=== PATIENT | male | born 1960 | race Caucasian/White ===

== ENCOUNTER 2019-08-26 17:15 | IRF | payer MEDICARE, MEDICAID, SELFPAY ==
--- NOTE | 2019-08-26 17:52 | PC.NURSE ---
This patient, Aldo Rodriguez, was admitted to [facility] Room 218-01. Patient/family oriented to hospital policies and general routines including ID bracelet, bed and alarms, visiting hours, pain management, procedures, bathroom and other care routines, personal items, smoking policy, room service/diet, and visiting hours. Valuables list has been completed. Information on how to activate the Rapid Response Team has been discussed. Patient/Family are encouraged to report perceived risks to care and to ask questions if they do not understand what they are told or what they should do.
[2019-08-26 18:35] VITALS: BP 118/57; PULSE 80; RESP 20; TEMP 36.1; O2SAT 100
[2019-08-26 21:43] LABS: Glucose Point of Care 237 (65-105)
[2019-08-26] MEDS: AMOXICILLIN/CLAVULANATE K 875-125 MG TAB 1 TABLET PO (21:49)
[2019-08-26] MEDS: SIMVASTATIN 10 MG TABLET PO (21:49)
[2019-08-26] MEDS: HEPARIN SODIUM 5,000 UNITS/ML VIAL 5000 UNITS SUB-Q (21:50)
[2019-08-26 22:00] VITALS: BP 141/68; PULSE 75; RESP 18; TEMP 36.4; O2SAT 96
[2019-08-27 05:14] LABS: Basophils Percent Auto 0.2 % (0.2-1.2); Eosinophils Absolute Auto 0.1 K/mm3 (0-0.3); Hematocrit 29.1 % (42.0-52.0); Immature Granulocyte Absolute 0.31 K/mm3 (0.00-0.031); Immature Granulocyte Percent A 3.1 % (0-0.5); Lymphocytes Absolute Auto 1.91 K/mm3 (0.9-3.2); Lymphocytes Percent Auto 19.1 % (18.3-44.2); Mean Corpuscular HGB Conc 30.9 g/dl (32-36); Mean Corpuscular Hemoglobin 30.7 pg (26-34); Mean Corpuscular Volume 99.3 fl (80-100); Mean Platelet Volume 8.9 fl (7.4-10.4); Monocytes Absolute Auto 0.6 K/mm3 (0.1-0.6); Monocytes Percent Auto 5.7 % (2.6-8.5); Neutrophils Absolute Auto 7.1 K/mm3 (1.3-6.7); Neutrophils Percent Auto 70.9 % (45.5-73.1); Platelet Count Result 360 k/mm3 (150-375); Red Blood Count 2.93 M/mm3 (4.6-6.20); Red Cell Distribution Width 13.1 % (11.5-14.5)
[2019-08-27 05:25] LABS: Blood Urea Nitrogen 11 mg/dL (9-20); Calcium 7.3 mg/dL (8.4-10.2); Carbon Dioxide 30 mmol/L (22-30); Chloride 103 mmol/L (98-107); Estimated Glomerular Filt Rate > 60; Glucose 248 mg/dL (75-110); Potassium 4.5 mmol/L (3.4-5.0); Sodium 135 mmol/L (137-145)
[2019-08-27] MEDS: HEPARIN SODIUM 5,000 UNITS/ML VIAL 5000 UNITS SUB-Q ×3 (05:32→20:41)
[2019-08-27 06:00] VITALS: BP 125/36; PULSE 69; RESP 18; TEMP 37; O2SAT 97
[2019-08-27 06:33] LABS: Glucose Point of Care 223 (65-105)
[2019-08-27] MEDS: INSULIN HUMAN NPH (*BKC) 100 UNITS/ML 30 UNITS SUB-Q (08:22)
[2019-08-27] MEDS: metFORMIN HCL 500 MG TABLET 1000 MG PO ×2 (08:23→17:04)
[2019-08-27] MEDS: ASPIRIN 81 MG ENTERIC TABLET PO (08:23)
[2019-08-27] MEDS: AMOXICILLIN/CLAVULANATE K 875-125 MG TAB 1 TABLET PO ×2 (08:23→20:41)
[2019-08-27] MEDS: lisinopriL 5 MG TABLET PO (08:23)
[2019-08-27] MEDS: GABAPENTIN 400 MG CAPSULE 800 MG PO ×3 (08:23→17:03)
[2019-08-27 09:52] LABS: Glucose Point of Care 217 (65-105)
--- NOTE | 2019-08-27 10:00 | WPDREHABHP ---
H&P: HPI History of Present Illness Chief complaint: r bka Narrative: Aldo Rodriguez is a 58 year old male HISTORY OF PRESENT ILLNESS: The patient's primary rehab impairment category is Amputation /lower extremity The etiologic diagnosis is right foot osteomyelitis with gangrene / status post right [id number] amputation I saw this patient [id number] on August 27, 2019 at 10:00 a.m. The patient is a 58-year-old right-handed white male with a past medical history of diabetes mellitus, diabetic foot ulcers with osteomyelitis, chronic kidney disease and peripheral vascular disease along with peripheral neuropathy who presented to the emergency department at [facility] on August 18, 2019 complaining of generalized weakness. He reported dropping a 4 pound can of beans on his right 4th toe approximately 10 days ago. He also complained of excessive thirst and urination. Examination revealed diabetic ketoacidosis with poorly-controlled diabetes mellitus type 1, right foot osteomyelitis, gangrene, acute renal failure, sepsis and soft tissue infection. He was hypotensive and dehydrated. He was given aggressive IV fluids. Lab work revealed pseudo hyperkalemia with lactic acidosis and acute renal failure. He was started on vancomycin and Zosyn empirically while awaiting cultures. He was started on an insulin drip and the transitions to subcutaneous insulin when he was at the level of the anion gap normalized. I vascular surgery was consulted and deemed the limb was not salvageable. He underwent a right wxoxa-bop-jeup amputation and left 2nd toe amputation with debridement of the left foot on August 20, [address] Tavares. He is nonweightbearing to the right lower extremity and he will touch weight-bearing on the left lower extremity. The patient will receive daily dressing changes. Postoperatively he has experienced acute pain, acute blood-loss anemia, hyperglycemia and hyponatremia. His insulin regimen has been monitored and managed accordingly. Pain is controlled with oral medications. Acute blood-loss anemia is stable with a hemoglobin of 10 point want at the referring hospital. Electrolyte balance are monitored and replaced as necessary. DVT prophylaxis with subcutaneous heparin. The patient has not traveled outside the [place] or had contact with someone who is ill that has traveled outside the [place] in the past 21 days. Patient also has not traveled to an area of the [place] that is experiencing known transmission of the Coronavirus and has not had close personal contact with anyone that has. The patient does not have a fever. The patient does not have any upper or aspirin lower respiratory illness symptoms Therapy was initiated at the acute care facility and the patient transferred to us from [facility] on August 26, 2019 on FALLS OR SURGERIES: The patient has had major surgeries in the 100 days prior to admission. They had no falls in the past year. They had no falls with injury in the past year. PAST MEDICAL HISTORY: cataracts, cellulitis left foot 2015, MRSA right leg 2005, current ulcer to the right foot hyperlipidemia hypertension peripheral neuropathy bilateral hands and feet diabetes mellitus type 1 since age 12 and morbid obesity, chronic kidney disease most likely related to diabetes mellitus PAST SURGICAL HISTORY: umbilical hernia repair x3 in the 90 speech 2 2 post amputation, right armpit tumor removal in his teens. Right 1st and 2nd to amputation prior to having had right BKA SOCIAL HISTORY: the patient lives with his brother in a 1 level home 5th 4 steps to enter. His brother is currently stooling ramp. Patient was completely independent prior and was working. 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 He is very motivated to participate in therapy and return to his prior level of independent functioning. He reported no falls the previous 6 months
[2019-08-27 12:24] LABS: Glucose Point of Care 156 (65-105)
[2019-08-27 14:00] VITALS: BP 100/63; PULSE 82; RESP 18; TEMP 36.7; O2SAT 99
--- NOTE | 2019-08-27 15:35 | RPD ---
INDIVIDUALIZED PLAN OF CARE FOR Aldo Rodriguez Brief Synthesis of Pre-Admission Screen, Post-Admission Evaluation and Therapy Evaluations: The patient presents to rehab with . Comorbidities include . Deficits include: Resident Care Manager/Case Management for: Discharge Planning and Patient/Family Counseling Physical Therapy: 5 days per week for 90 minutes. Treatments may include: Therapeutic Exercise, Gait Training, Neuromuscular Re-education, Transfer Training, Community Reintegration, Bed Mobility, Patient/Family Education, Wheelchair Mobility Group Therapy/Concurrent Therapy Rationales: -Improve attention span during functional activities in a distracted environment. -Enhance problem solving and/or adequate judgment skills during functional activities in a distracted environment. -Promote increased safety awareness in a distracted environment to reduce fall risk with functional tasks, transfers, and ambulation to allow a more safe, self-sufficient return to the home environment. -Improve dynamic balance skills to promote safety and independence with functional activities in a distracted environment for maximum gain. Occupational Therapy: 5 days per week for 90 minutes. Treatments may include: Therapeutic Exercise, Therapeutic Activity, Cognitive Training, Self-Care Transfer Training, Community Reintegration, Home Management, Patient/Family Education, Wheelchair Mobility Training, Energy Conservation Training Group Therapy/Concurrent Therapy Rationales: -Allow therapist to observe and teach generalization and carry-over of skills learned in individual therapy. -Enhance problem solving and sequencing skills during therapeutic activities in a distracted environment. -Promote increased safety awareness in a realistic setting to reduce fall risk with functional tasks due to visual and verbal distractions. -Increase functional level with ADLs, ADL transfers and use of adaptive equipment through therapeutic activities with others while promoting safety to allow a more safe, self-sufficient return home. Speech Therapy: 5 days per week for 30 minutes. Treatments may include: Dysphasia Therapy, Speech/Language/Communication Therapy, Cognitive Training, Patient/Family Education Group Therapy/Concurrent Therapy - Rationale: -Allow therapist to observe and teach generalization and carry-over of skills learned in individual therapy. -Improve comprehension skills with complex or abstract ideas through discussion in a realistic setting. -Enhance problem solving skills with complex issues during activities in a distracted environment. -Promote increased memory skills and concentration in a distracted environment for a safe transition home. -Improve attention and focus with language/communication skills in a realistic and supportive therapeutic setting. -Allow for practice of expression of basic needs and ideas through functional activities with others. Medical Prognosis: Good Anticipated Length of Stay: 12 days Rehab Goals: Eating Goal: 06-Independent Oral Hygiene Goal: 06-Independent Toileting Hygiene Goal: 06-Independent Shower/Bathe Self Goal: 06-Independent Upper Body Dressing Goal: 06-Independent Lower Body Dressing Goal: 06-Independent Putting On/Taking Off Footwear Goal: 06-Independent Rolling Left and Right Goal: 06-Independent Sit to Lying Goal: 06-Independent Lying to Sitting on Side of Bed Goal: 06-Independent Sit to Stand Goal: 06-Independent Chair/Ryt-uh-Onwgf Transfer Goal: 06-Independent Toilet Transfer Goal: 06-Independent Car Transfer Goal: Walk 10' Goal: Walk 50' with Two Turns Goal: Walk 150' Goal: Walk 10' on Uneven Surface Goal: 1 Step (Curb) Goal: 4 Steps Goal: 12 Steps Goal Score: Picking Up Object Goal: 04-Supervision or Touching Assistance Wheel 50' with Two Turns Score: Wheel 150' Goal: Anticipated discharge destination: Home
[2019-08-27 17:20] LABS: Glucose Point of Care 121 (65-105)
[2019-08-27 20:00] VITALS: BP 137/60; PULSE 84; RESP 20; TEMP 36.6; O2SAT 100
[2019-08-27] MEDS: SIMVASTATIN 10 MG TABLET PO (20:41)
[2019-08-27 21:46] LABS: Glucose Point of Care 187 (65-105)
[2019-08-28 03:55] VITALS: BMI 38.0
[2019-08-28 05:49] VITALS: BP 128/50; PULSE 74; RESP 20; TEMP 36.8; O2SAT 98
[2019-08-28] MEDS: HEPARIN SODIUM 5,000 UNITS/ML VIAL 5000 UNITS SUB-Q ×3 (06:19→20:40)
[2019-08-28 07:05] LABS: Glucose Point of Care 174 (65-105)
[2019-08-28] MEDS: INSULIN HUMAN NPH (*BKC) 100 UNITS/ML 30 UNITS SUB-Q ×2 (08:26→17:13)
[2019-08-28] MEDS: AMOXICILLIN/CLAVULANATE K 875-125 MG TAB 1 TABLET PO ×2 (08:28→20:40)
[2019-08-28] MEDS: ASPIRIN 81 MG ENTERIC TABLET PO (08:28)
[2019-08-28] MEDS: metFORMIN HCL 500 MG TABLET 1000 MG PO ×2 (08:28→17:12)
[2019-08-28] MEDS: GABAPENTIN 400 MG CAPSULE 800 MG PO ×3 (08:28→17:12)
[2019-08-28] MEDS: lisinopriL 5 MG TABLET PO (08:31)
[2019-08-28 10:34] VITALS: BMI 38.0
--- NOTE | 2019-08-28 11:21 | WPDNEURORHBP ---
Subjective Date/time seen: 08/28/19 11:21 Interval history: this 58-year-old is abated after having had right BKA he is a diabetic and multiple medical issues he wants his gabapentin every 8 hours otherwise is stable pain control is better diabetic control seems to be better he does not have any new symptoms particularly denies any headache nausea vomiting chest pain shortness of breath fever chills or sore throat Review of Systems Review of Systems: All systems reviewed & are unremarkable except as noted in HPI and below Functional Status Ambulation Ability Ability to Ambulate 10 Feet: Moderate Assistance X 1 Ambulation Assistive Devices: Walker, Standard Transfers Ability Ability to Transfer In/Out of Chair: Minimum Assistance X 1 Exam Const: General: comfortable and no acute distress HENMT: General nose exam: Normal nares present Mouth: Yes moist mucous membranes Eyes: General: appearance normal, both eyes and all related structures Neck: Neck: supple and no JVD Resp: Effort & Inspection: normal respiratory effort Auscultation: clear to auscultation bilaterally Cardio: Rate: regular rate Rhythm: regular rhythm GI: GI Palp: Yes Soft to palpation Auscultation: normal bowel sounds : Male General Exam: Yes normal external exam Skin: General skin exam: normal color and no rashes or lesions noted Neuro: Other: patient is awake and alert will oriented times place and person speech and language functions are normal cranial nerve examination is normal apart from the evidence of diabetic retinopathy he does have significant evidence of the diabetic peripheral neuropathy with absent reflexes and sensory deficit needing assistance in all activities of daily living Extrem: Other: evidence of a peripheral neuropathy along with the right BKA the stump is clean Psych: Mental Status: mental status grossly normal Objective Data Vital Signs Vital Signs: Vital Signs - 24 hr 08/28/19 14:00 08/28/19 22:00 08/29/19 06:00 Temperature 36.4 C L 36.2 C L 36.3 C L Pulse Rate 78 70 64 Respiratory Rate 18 18 18 Blood Pressure 117/61 130/68 129/65 Pulse Oximetry 98 100 99 Intake/Output Intake/Output: Intake & Output 08/26/19 08/27/19 08/28/19 08/29/19 23:59 23:59 23:59 23:59 Intake Total 140 950 7357 480 Balance 048 057 0228 480 Meds/Results Medications: Active Medications Generic Name Dose Route Start Last Admin Trade Name Freq PRN Reason Stop Dose Admin Hydrocodone Bitart/Acetaminophen 2 tab 08/28/19 13:00 08/29/19 08:34 Max 5-325 Mg PO 2 tab Q4HR KHRIS Administration Amoxicillin/Clavulanate Potassium 1 tablet 08/26/19 21:00 08/29/19 08:31 Augmentin 875-125 Mg Tab PO 1 tablet Q12HR KHRIS Administration Aspirin 81 mg 08/27/19 09:00 08/29/19 08:31 Aspirin Ec PO 81 mg DAILY KHRIS Administration Gabapentin 800 mg 08/27/19 09:00 08/29/19 08:32 Neurontin PO 800 mg TID KHRIS Administration Heparin Sodium (Porcine) 5,000 units 08/26/19 22:00 08/29/19 05:25 Heparin Sodium SUB-Q 5,000 units Q8HR KHRIS Administration Insulin Human NPH 30 units 08/28/19 08:00 08/29/19 08:31 SUB-Q 30 units 0800,1700 KHRIS Administration Lisinopril 5 mg 08/27/19 09:00 08/29/19 08:32 Prinivil PO 5 mg DAILY KHRIS Administration Metformin HCl 1,000 mg 08/27/19 08:00 08/29/19 08:31 Glucophage PO 1,000 mg BIDWM KHRIS Administration Simvastatin 10 mg 08/26/19 21:00 08/28/19 20:40 Zocor PO 10 mg HS KHRIS Administration Labs Labs: Laboratory Results - last 24 hr 08/28/19 08/28/19 08/28/19 12:04 16:40 20:52 POC Capillary Glucose 222 H 161 H 110 08/29/19 06:53 POC Capillary Glucose 114 H Progress Note: A&P Assessment and Plan (1) Chronic kidney disease: Code(s): N18.9 - Chronic kidney disease, unspecified Status: Acute (2) Hypertension: Code(s): I10 - Essential (primary) hypertension Status
[2019-08-28 12:09] LABS: Glucose Point of Care 222 (65-105)
[2019-08-28 14:00] VITALS: BP 117/61; PULSE 78; RESP 18; TEMP 36.4; O2SAT 98
--- NOTE | 2019-08-28 15:41 | RPD ---
INDIVIDUALIZED PLAN OF CARE FOR Aldo Rodriguez Brief Synthesis of Pre-Admission Screen, Post-Admission Evaluation and Therapy Evaluations: The patient presents to rehab with right foot osetomyelitis with gangrene. Comorbidities include right foot soft tissue infection, status post right below knee amputation, peripheral neuropathy, acute pain, mild respiratory insufficiency, hypotension secondary to sepsis, sepsis, dehydration, acute on chronic renal failure, diabetic ketoacidosis, edema, erythema. The patient requires physician services for medical oversight, management of post-op complications in the setting of present comorbidities, management of diabetes mellitus with diabetic ketoacidosis this admission, and pain management. Post-op complications have included hyponatremia, hyperglycemia, acute postoperative pain, and acute blood loss anemia. The patient requires nursing services for anticoagulation therapy, diabetes training, DVT prophylactics, infection protection, medication management and education, pressure relief, and wound care. Deficits include:ADLs, Balance, Endurance, Family Training/Education, Mobility, Pain Management, ROM, Safety, Strength, Transfers Educational Psychologist/Case Management for: Discharge Planning and Patient/Family Counseling Physical Therapy: 5 days per week for 90 minutes. Treatments may include: Therapeutic Exercise, Gait Training, Neuromuscular Re-education, Transfer Training, Community Reintegration, Bed Mobility, Patient/Family Education, Wheelchair Mobility Group Therapy/Concurrent Therapy Rationales: -Improve attention span during functional activities in a distracted environment. -Enhance problem solving and/or adequate judgment skills during functional activities in a distracted environment. -Promote increased safety awareness in a distracted environment to reduce fall risk with functional tasks, transfers, and ambulation to allow a more safe, self-sufficient return to the home environment. -Improve dynamic balance skills to promote safety and independence with functional activities in a distracted environment for maximum gain. Occupational Therapy: 5 days per week for 90 minutes. Treatments may include: Therapeutic Exercise, Therapeutic Activity, Cognitive Training, Self-Care Transfer Training, Community Reintegration, Home Management, Patient/Family Education, Wheelchair Mobility Training, Energy Conservation Training Group Therapy/Concurrent Therapy Rationales: -Allow therapist to observe and teach generalization and carry-over of skills learned in individual therapy. -Enhance problem solving and sequencing skills during therapeutic activities in a distracted environment. -Promote increased safety awareness in a realistic setting to reduce fall risk with functional tasks due to visual and verbal distractions. -Increase functional level with ADLs, ADL transfers and use of adaptive equipment through therapeutic activities with others while promoting safety to allow a more safe, self-sufficient return home. Medical Prognosis: Good Anticipated Length of Stay: 12 days Rehab Goals: Eating Goal: 06-Independent Oral Hygiene Goal: 06-Independent Toileting Hygiene Goal: 06-Independent Shower/Bathe Self Goal: 06-Independent Upper Body Dressing Goal: 06-Independent Lower Body Dressing Goal: 06-Independent Putting On/Taking Off Footwear Goal: 06-Independent Rolling Left and Right Goal: 06-Independent Sit to Lying Goal: 06-Independent Lying to Sitting on Side of Bed Goal: 06-Independent Sit to Stand Goal: 06-Independent Chair/Tvq-qt-Pernc Transfer Goal: 06-Independent Toilet Transfer Goal: 06-Independent Car Transfer Goal: 06-Independent Walk 10' Goal: 06-Independent Walk 50' with Two Turns Goal: 02-Substantial/Maximal Assistance Walk 150' Goal: 09-Not Applicable Walk 10' on Uneven Surface Goal: 06-Independent 1 Step (Curb) Goal: 02-Substantial/Maximal Assistance 4 Steps Goal: 02-Substantial/Maximal Assistance 12 Step
[2019-08-28 16:45] LABS: Glucose Point of Care 161 (65-105)
[2019-08-28] MEDS: SIMVASTATIN 10 MG TABLET PO (20:40)
[2019-08-28 21:00] LABS: Glucose Point of Care 110 (65-105)
[2019-08-28 22:00] VITALS: BP 130/68; PULSE 70; RESP 18; TEMP 36.2; O2SAT 100
[2019-08-29] MEDS: HEPARIN SODIUM 5,000 UNITS/ML VIAL 5000 UNITS SUB-Q ×3 (05:25→21:16)
[2019-08-29 06:00] VITALS: BP 129/65; PULSE 64; RESP 18; TEMP 36.3; O2SAT 99
[2019-08-29 06:58] LABS: Glucose Point of Care 114 (65-105)
[2019-08-29] MEDS: INSULIN HUMAN NPH (*BKC) 100 UNITS/ML 30 UNITS SUB-Q ×2 (08:31→17:25)
[2019-08-29] MEDS: ASPIRIN 81 MG ENTERIC TABLET PO (08:31)
[2019-08-29] MEDS: AMOXICILLIN/CLAVULANATE K 875-125 MG TAB 1 TABLET PO ×2 (08:31→21:14)
[2019-08-29] MEDS: metFORMIN HCL 500 MG TABLET 1000 MG PO ×2 (08:31→17:24)
[2019-08-29] MEDS: GABAPENTIN 400 MG CAPSULE 800 MG PO ×3 (08:32→21:15)
[2019-08-29] MEDS: lisinopriL 5 MG TABLET PO (08:32)
[2019-08-29 12:08] LABS: Glucose Point of Care 84 (65-105)
--- NOTE | 2019-08-29 13:35 | WPDNEURORHBP ---
Subjective Date/time seen: 08/29/19 13:35 Interval history: this 58-year-old diabetic type 1 is here after having had right BKA created is pain is fairly decently controlled he denies any headache nausea vomiting chest pain shortness of breath fever chills or sore throat Review of Systems Review of Systems: All systems reviewed & are unremarkable except as noted in HPI and below Functional Status Ambulation Ability Ability to Ambulate 10 Feet: Moderate Assistance X 1 Ambulation Assistive Devices: Walker, Standard Transfers Ability Ability to Transfer In/Out of Chair: Minimum Assistance X 1 Exam Const: General: comfortable and no acute distress HENMT: General nose exam: Normal nares present Mouth: Yes moist mucous membranes Eyes: General: appearance normal, both eyes and all related structures Neck: Neck: supple and no JVD Resp: Effort & Inspection: normal respiratory effort Auscultation: clear to auscultation bilaterally Cardio: Rate: regular rate Rhythm: regular rhythm GI: GI Palp: Yes Soft to palpation Auscultation: normal bowel sounds : Male General Exam: Yes normal external exam Skin: General skin exam: normal color and no rashes or lesions noted Neuro: Other: patient's mental status is normal cranial exam shows normal he has generalized weakness and significant evidence of peripheral neuropathy lower extremities more so than the upper extremities and of course right puczq-isv-[id number] amputation Extrem: Other: right [id number]-[id number] amputation looks clean Psych: Mental Status: mental status grossly normal Objective Data Vital Signs Vital Signs: Vital Signs - 24 hr 08/28/19 14:00 08/28/19 22:00 08/29/19 06:00 Temperature 36.4 C L 36.2 C L 36.3 C L Pulse Rate 78 70 64 Respiratory Rate 18 18 18 Blood Pressure 117/61 130/68 129/65 Pulse Oximetry 98 100 99 Intake/Output Intake/Output: Intake & Output 08/26/19 08/27/19 08/28/19 08/29/19 23:59 23:59 23:59 23:59 Intake Total 747 052 5897 480 Balance 282 254 5021 480 Meds/Results Medications: Active Medications Generic Name Dose Route Start Last Admin Trade Name Freq PRN Reason Stop Dose Admin Hydrocodone Bitart/Acetaminophen 2 tab 08/28/19 13:00 08/29/19 13:03 [place] 5-325 Mg PO 2 tab Q4HR KHRIS Administration Amoxicillin/Clavulanate Potassium 1 tablet 08/26/19 21:00 08/29/19 08:31 Augmentin 875-125 Mg Tab PO 1 tablet Q12HR KHRIS Administration Aspirin 81 mg 08/27/19 09:00 08/29/19 08:31 Aspirin Ec PO 81 mg DAILY KHRIS Administration Gabapentin 800 mg 08/29/19 14:00 08/29/19 13:03 Neurontin PO 800 mg Q8HR KHRIS Administration Heparin Sodium (Porcine) 5,000 units 08/26/19 22:00 08/29/19 13:03 Heparin Sodium SUB-Q 5,000 units Q8HR KHRIS Administration Insulin Human NPH 30 units 08/28/19 08:00 08/29/19 08:31 SUB-Q 30 units 0800,1700 KHRIS Administration Lisinopril 5 mg 08/27/19 09:00 08/29/19 08:32 Prinivil PO 5 mg DAILY KHRIS Administration Metformin HCl 1,000 mg 08/27/19 08:00 08/29/19 08:31 Glucophage PO 1,000 mg BIDWM KHRIS Administration Simvastatin 10 mg 08/26/19 21:00 08/28/19 20:40 Zocor PO 10 mg HS KHRIS Administration Labs Labs: Laboratory Results - last 24 hr 08/28/19 08/28/19 08/29/19 16:40 20:52 06:53 POC Capillary Glucose 161 H 110 114 H 08/29/19 11:49 POC Capillary Glucose 84 Progress Note: A&P Assessment and Plan (1) Chronic kidney disease: Code(s): N18.9 - Chronic kidney disease, unspecified Status: Acute (2) Hypertension: Code(s): I10 - Essential (primary) hypertension Status: Acute (3) Uncontrolled type 1 diabetes mellitus with peripheral autonomic neuropathy: Code(s): E10.43 - Type 1 diabetes mellitus with diabetic autonomic (poly)neuropathy; E10.65 - Type 1 diabetes mellitus with hyperglycemia Status: Acute (4) Amputation of second toe, left, traumatic:
[2019-08-29 14:00] VITALS: BP 132/68; PULSE 81; RESP 18; TEMP 36.2; O2SAT 98
[2019-08-29 17:19] LABS: Glucose Point of Care 87 (65-105)
[2019-08-29] MEDS: SIMVASTATIN 10 MG TABLET PO (21:15)
[2019-08-29 21:45] LABS: Glucose Point of Care 129 (65-105)
[2019-08-29 21:48] VITALS: BP 119/63; PULSE 72; RESP 16; TEMP 36.1; O2SAT 100
[2019-08-30] MEDS: HEPARIN SODIUM 5,000 UNITS/ML VIAL 5000 UNITS SUB-Q ×3 (05:30→20:38)
[2019-08-30] MEDS: GABAPENTIN 400 MG CAPSULE 800 MG PO ×3 (05:30→21:50)
[2019-08-30 06:00] VITALS: BP 143/82; PULSE 77; RESP 18; TEMP 36; O2SAT 98
[2019-08-30 06:49] LABS: Glucose Point of Care 95 (65-105)
[2019-08-30 08:00] VITALS: PULSE 77; RESP 18; O2SAT 98
[2019-08-30] MEDS: lisinopriL 5 MG TABLET PO (08:25)
[2019-08-30] MEDS: metFORMIN HCL 500 MG TABLET 1000 MG PO ×2 (08:25→17:03)
[2019-08-30] MEDS: AMOXICILLIN/CLAVULANATE K 875-125 MG TAB 1 TABLET PO ×2 (08:25→20:36)
[2019-08-30] MEDS: ASPIRIN 81 MG ENTERIC TABLET PO (08:25)
[2019-08-30 11:06] LABS: Glucose Point of Care 191 (65-105)
[2019-08-30 13:58] VITALS: BP 125/56; PULSE 79; RESP 18; TEMP 36.1; O2SAT 99
[2019-08-30 16:56] LABS: Glucose Point of Care 155 (65-105)
[2019-08-30] MEDS: INSULIN HUMAN NPH (*BKC) 100 UNITS/ML 30 UNITS SUB-Q (17:03)
[2019-08-30 20:31] VITALS: BP 134/68; PULSE 76; RESP 16; TEMP 36.5; O2SAT 100
[2019-08-30] MEDS: SIMVASTATIN 10 MG TABLET PO (20:35)
[2019-08-30 21:04] LABS: Glucose Point of Care 157 (65-105)
[2019-08-31 04:30] VITALS: BP 149/89; PULSE 69; RESP 16; TEMP 36.6; O2SAT 99
[2019-08-31] MEDS: HEPARIN SODIUM 5,000 UNITS/ML VIAL 5000 UNITS SUB-Q ×3 (05:25→22:11)
[2019-08-31] MEDS: GABAPENTIN 400 MG CAPSULE 800 MG PO ×3 (05:25→22:11)
[2019-08-31 06:55] LABS: Glucose Point of Care 75 (65-105)
[2019-08-31 08:00] VITALS: PULSE 69; RESP 16; O2SAT 99
[2019-08-31] MEDS: lisinopriL 5 MG TABLET PO (08:32)
[2019-08-31] MEDS: AMOXICILLIN/CLAVULANATE K 875-125 MG TAB 1 TABLET PO ×2 (08:32→20:41)
[2019-08-31] MEDS: ASPIRIN 81 MG ENTERIC TABLET PO (08:32)
[2019-08-31] MEDS: metFORMIN HCL 500 MG TABLET 1000 MG PO ×2 (08:32→17:06)
--- NOTE | 2019-08-31 09:56 | WPDNEURORHBP ---
Subjective Date/time seen: MATI with pain which is improving and going home today08/31/19 09:56 Functional Status Ambulation Ability Ability to Ambulate 10 Feet: Moderate Assistance X 1 Ambulation Assistive Devices: Walker, Standard and Walker, Wheeled Transfers Ability Ability to Transfer In/Out of Chair: Minimum Assistance X 1 Exam Const: General: cooperative, comfortable and no acute distress Orientation/consciousness: patient oriented x3 Limitations: no limitations Eyes: General: appearance normal, both eyes and all related structures Neck: Neck: full ROM and no lymphadenopathy Resp: Effort & Inspection: normal respiratory effort and able to speak in complete sentences Auscultation: clear to auscultation bilaterally Cardio: Rate: regular rate Rhythm: regular rhythm GI: Auscultation: normal bowel sounds Skin: General skin exam: no rashes or lesions noted Neuro: General: patient oriented x3 and moves all extremities Cranial nerves: Yes CN's II-XII intact bilaterally, Yes Equal, round and reactive pupils present, Yes Bilaterally intact EOM present, Yes Nystagmus not present, Yes Normal facial strength present, Yes Midline tongue present, Yes Symmetric palate elevation present and Yes Ability to bilaterally rotate head present Cognition (Neuro): normal cognition Speech: normal speech Gait exam (Neuro): Wide-based gait present Motor exam (neuro): 5/5 motor strength present throughout (decreased in lower extremities. particularly LLE), Motor fasciculations not present and Normal motor muscle tone present throughout Psych: Appearance: grossly normal Mental Status: mental status grossly normal Affect: normal affect Attitude: cooperative Thought process: Normal thought process present Thought content: Yes Normal thought content present Insight: Good insight present (Psych) Objective Data Vital Signs Vital Signs: Vital Signs - 24 hr 08/30/19 13:58 08/30/19 20:31 08/31/19 04:30 Temperature 36.1 C L 36.5 C 36.6 C Pulse Rate 79 76 69 Respiratory Rate 18 16 16 Blood Pressure 125/56 L 134/68 149/89 H Pulse Oximetry 99 100 99 Intake/Output Intake/Output: Intake & Output 08/28/19 08/29/19 08/30/19 08/31/19 23:59 23:59 23:59 23:59 Intake Total 1080 1440 840 Balance 1080 1440 840 Meds/Results Medications: Active Medications Generic Name Dose Route Start Last Admin Trade Name Freq PRN Reason Stop Dose Admin Hydrocodone Bitart/Acetaminophen 2 tab 08/28/19 13:00 08/31/19 08:33 [place] 5-325 Mg PO 2 tab Q4HR KHRIS Administration Amoxicillin/Clavulanate Potassium 1 tablet 08/26/19 21:00 08/31/19 08:32 Augmentin 875-125 Mg Tab PO 1 tablet Q12HR KHRIS Administration Aspirin 81 mg 08/27/19 09:00 08/31/19 08:32 Aspirin Ec PO 81 mg DAILY KHRIS Administration Gabapentin 800 mg 08/29/19 14:00 08/31/19 05:25 Neurontin PO 800 mg Q8HR KHRIS Administration Heparin Sodium (Porcine) 5,000 units 08/26/19 22:00 08/31/19 05:25 Heparin Sodium SUB-Q 5,000 units Q8HR KHRIS Administration Insulin Human NPH 30 units 08/28/19 08:00 08/31/19 08:35 SUB-Q Not Given 0800,1700 KHRIS Lisinopril 5 mg 08/27/19 09:00 08/31/19 08:32 Prinivil PO 5 mg DAILY KHRIS Administration Metformin HCl 1,000 mg 08/27/19 08:00 08/31/19 08:32 Glucophage PO 1,000 mg BIDWM KHRIS Administration Simvastatin 10 mg 08/26/19 21:00 08/30/19 20:35 Zocor PO 10 mg HS KHRIS Administration Labs Labs: Laboratory Results - last 24 hr 08/30/19 08/30/19 08/30/19 11:02 16:52 20:43 POC Capillary Glucose 191 H 155 H 157 H 08/31/19 06:51 POC Capillary Glucose 75 Progress Note: A&P Additional Plan stable advise knee extension exersizes at home while sitting in chair
[2019-08-31 11:57] LABS: Glucose Point of Care 126 (65-105)
[2019-08-31 14:00] VITALS: BP 100/52; PULSE 72; RESP 18; TEMP 37; O2SAT 97
[2019-08-31 16:57] LABS: Glucose Point of Care 143 (65-105)
[2019-08-31] MEDS: INSULIN HUMAN NPH (*BKC) 100 UNITS/ML 30 UNITS SUB-Q (17:09)
[2019-08-31 20:33] LABS: Glucose Point of Care 152 (65-105)
[2019-08-31] MEDS: SIMVASTATIN 10 MG TABLET PO (20:41)
[2019-08-31 22:00] VITALS: BP 146/51; PULSE 69; RESP 20; TEMP 36.3; O2SAT 100
[2019-09-01] MEDS: HEPARIN SODIUM 5,000 UNITS/ML VIAL 5000 UNITS SUB-Q ×3 (05:55→20:47)
[2019-09-01] MEDS: GABAPENTIN 400 MG CAPSULE 800 MG PO ×3 (05:56→22:04)
[2019-09-01 06:00] VITALS: BP 191/71; PULSE 75; RESP 20; TEMP 36.3; O2SAT 98
[2019-09-01 07:02] LABS: Glucose Point of Care 104 (65-105)
[2019-09-01] MEDS: metFORMIN HCL 500 MG TABLET 1000 MG PO ×2 (09:01→17:43)
[2019-09-01] MEDS: lisinopriL 5 MG TABLET PO (09:02)
[2019-09-01] MEDS: AMOXICILLIN/CLAVULANATE K 875-125 MG TAB 1 TABLET PO ×2 (09:02→20:45)
[2019-09-01] MEDS: ASPIRIN 81 MG ENTERIC TABLET PO (09:02)
[2019-09-01] MEDS: INSULIN HUMAN NPH (*BKC) 100 UNITS/ML 30 UNITS SUB-Q (09:08)
--- NOTE | 2019-09-01 12:59 | PCNFU ---
Nutrition Follow-Up Complete: Increased protein needs related to increased demands for healing as evidenced by recent BKA and toe amputation. Goal: Patient to consume 75% of meals or greater. Patient has met goal. No new goal. Pt current nutrition is Heart Healthy. Nutrition recommendation: Agree Last recorded weight is 110 kg. Bowel Motility:+BM reported 08/30. Labs Reviewed:no new labs to report. Meds Noted:NPH, Glucophage, Augmentin Additional Notes: Spoke with patient today due to COVID 19 precautions. Patient states to no diet concerns. Oral intake 100% of meals. Agree with diet orders. Monitoring: Follow up every 5 days.
[2019-09-01 14:00] VITALS: BP 140/68; PULSE 87; RESP 20; TEMP 36.5; O2SAT 98
[2019-09-01 18:32] LABS: Glucose Point of Care 114 (65-105)
[2019-09-01] MEDS: SIMVASTATIN 10 MG TABLET PO (20:45)
[2019-09-01 20:59] LABS: Glucose Point of Care 121 (65-105)
[2019-09-01 22:00] VITALS: BP 149/75; PULSE 76; RESP 17; TEMP 36.3; O2SAT 99
[2019-09-02 04:42] LABS: Glucose Point of Care 106 (65-105)
[2019-09-02 06:00] VITALS: BP 143/71; PULSE 69; RESP 17; TEMP 36.1; O2SAT 100
[2019-09-02] MEDS: HEPARIN SODIUM 5,000 UNITS/ML VIAL 5000 UNITS SUB-Q ×3 (06:33→21:00)
[2019-09-02] MEDS: GABAPENTIN 400 MG CAPSULE 800 MG PO ×3 (06:33→21:00)
[2019-09-02 07:00] LABS: Glucose Point of Care 117 (65-105)
[2019-09-02 08:00] VITALS: PULSE 69; RESP 17; O2SAT 100
[2019-09-02] MEDS: metFORMIN HCL 500 MG TABLET 1000 MG PO ×2 (08:21→17:06)
[2019-09-02] MEDS: AMOXICILLIN/CLAVULANATE K 875-125 MG TAB 1 TABLET PO ×2 (08:22→21:00)
[2019-09-02] MEDS: ASPIRIN 81 MG ENTERIC TABLET PO (08:22)
[2019-09-02] MEDS: lisinopriL 5 MG TABLET PO (08:22)
--- NOTE | 2019-09-02 09:55 | PCPTNOTE ---
Christina AAkin Irby PTA completed an inpatient rehab wheelchair evaluation on Aldo Rodriguez on 09/02/2019. The patient is unable to safely and independently ambulate household distances due to their current impairments. Their diagnosis is R BKA and their impairments include decreased strength, decreased endurance, decreased range of motion, decreased balance and lower extremity weakness. Aldo's weight bearing status is weight-bearing as tolerated on left lower leg and non weight bearing on right lower leg. The patient demonstrates significant functional mobility limitations that impair their ability to participate in mobility-related activities of daily living (MRADLs), including toileting, feeding, dressing, grooming, and bathing in the customary locations in the home. These limitations cannot be sufficiently resolved by the use of an appropriately fitted cane or walker. It is recommended that the patient utilize a wheelchair for functional mobility within the home in order to facilitate optimal safety, independence and participation in all MRADL's and adequately access their home environment on a regular basis. The patient's home provides adequate access between rooms, maneuvering space, and surfaces to accommodate the recommended wheelchair. The use of a wheelchair for functional mobility is strongly recommended and the patient is receptive to using the wheelchair. The use of this wheelchair will significantly improve the patient's ability to participate in MRADLS and the patient will use it on a regular basis in the home. This will facilitate optimal safety, independence, and participation. The patient has demonstrated sufficient physical and mental capabilities needed to safely propel a manual wheelchair that is provided in the home during a typical day. Recommended Wheelchair Frame: standard Recommended Wheelchair Size: 20x18 due to patient's anatomical hip width patient will require a 20 inch width wheelchair. Recommended Wheelchair Cushion:standard Wheelchair Leg Recommendations: swing away elevating leg rest on left and residual leg rest for right due to right below knee amputation - Elevating legrests are recommended because the patient has significant edema of the lower extremities that requires an elevating legrest. -Anti-tippers are recommended due to patient demonstrating increased risk for falls. They would benefit from anti-tippers with added safety and stabilization. Christina Pryorarvind ROSALES 09/02/2019 Evaluating Therapist Date I agree with and certify that the above recommendation is medically necessary. Referring Physician Date I agree with and certify that the above recommendation is medically necessary. Referring Physician Date
--- NOTE | 2019-09-02 11:08 | PC.NURSE ---
NPH held this morning accucheck was 117. Dr. Lamar contacted and insulin put on hold per his order.
[2019-09-02 11:49] LABS: Glucose Point of Care 194 (65-105)
[2019-09-02 14:00] VITALS: BP 114/70; PULSE 98; RESP 20; TEMP 36.2; O2SAT 100
--- NOTE | 2019-09-02 14:17 | WPDNEURORHBP ---
Subjective Date/time seen: 09/02/19 14:17 Interval history: this 58-year-old the white male is here who has underlying significant diabetes mellitus and came here to rehab after having had right BKA. This morning he had increasing pain in the right leg but feels better liver in the morning. Sugars have been running relatively low so we have to hold his rather high dose of Lantus at this point and see which way he is going he knows his diabetes better than some of the treating physicians so he would know how much insulin he would require this point however running low in low 100s we have to hold the insulin NPH He denies any fever chills sore throat headache nausea vomiting chest pain or shortness of Review of Systems Review of Systems: All systems reviewed & are unremarkable except as noted in HPI and below Functional Status Ambulation Ability Ability to Ambulate 10 Feet: Minimum Assistance X 1 Ambulation Assistive Devices: Walker, Wheeled Transfers Ability Ability to Transfer In/Out of Chair: Standby Assistance Exam Const: General: comfortable and no acute distress HENMT: General nose exam: Normal nares present Mouth: Yes moist mucous membranes Eyes: General: appearance normal, both eyes and all related structures Neck: Neck: supple and no JVD Resp: Effort & Inspection: normal respiratory effort Auscultation: clear to auscultation bilaterally Cardio: Rate: regular rate Rhythm: regular rhythm GI: GI Palp: Yes Soft to palpation Auscultation: normal bowel sounds Skin: General skin exam: normal color and no rashes or lesions noted Neuro: Other: patient has remained awake alert well oriented in time placement person with normal speech and language functions along with the diabetic retinopathy peripheral neuropathy needing assistance all the activities of daily living of course with right BKA Extrem: Other: the stump looks a clean Psych: Mental Status: mental status grossly normal Objective Data Vital Signs Vital Signs: Vital Signs - 24 hr 09/01/19 22:00 09/02/19 06:00 09/02/19 08:00 Temperature 36.3 C L 36.1 C L Pulse Rate 76 69 69 Respiratory Rate 17 17 17 Blood Pressure 149/75 H 143/71 H Pulse Oximetry 99 100 100 Intake/Output Intake/Output: Intake & Output 08/30/19 08/31/19 09/01/19 09/02/19 23:59 23:59 23:59 23:59 Intake Total 840 1080 720 360 Balance 840 1080 720 360 Meds/Results Medications: Active Medications Generic Name Dose Route Start Last Admin Trade Name Freq PRN Reason Stop Dose Admin Hydrocodone Bitart/Acetaminophen 2 tab 08/31/19 22:17 09/02/19 10:18 [place] 5-325 Mg PO 1 tab Q4HR PRN Administration Pain Rated 7-10 Amoxicillin/Clavulanate Potassium 1 tablet 08/26/19 21:00 09/02/19 08:22 Augmentin 875-125 Mg Tab PO 1 tablet Q12HR KHRIS Administration Aspirin 81 mg 08/27/19 09:00 09/02/19 08:22 Aspirin Ec PO 81 mg DAILY KHRIS Administration Gabapentin 800 mg 08/29/19 14:00 09/02/19 13:30 Neurontin PO 800 mg Q8HR KHRIS Administration Heparin Sodium (Porcine) 5,000 units 08/26/19 22:00 09/02/19 13:31 Heparin Sodium SUB-Q 5,000 units Q8HR KHRIS Administration Insulin Human NPH 30 units 08/28/19 08:00 09/01/19 18:51 SUB-Q Not Given 0800,1700 [facility] Lisinopril 5 mg 08/27/19 09:00 09/02/19 08:22 Prinivil PO 5 mg DAILY KHRIS Administration Metformin HCl 1,000 mg 08/27/19 08:00 09/02/19 08:21 Glucophage PO 1,000 mg BIDWM KHRIS Administration Simvastatin 10 mg 08/26/19 21:00 09/01/19 20:45 Zocor PO 10 mg HS KHRIS Administration Labs Labs: Laboratory Results - last 24 hr 09/01/19 09/01/19 09/02/19 17:59 20:44 04:39 POC Capillary Glucose 114 H 121 H 106 09/02/19 09/02/19 06:47 11:45 POC Capillary Glucose 117 H 194 H Progress Note: A&P Assessment and Plan (1) Chronic kidney disease: Code(s): N18.9 - Chronic kidney disease, unspecified Sta
[2019-09-02 17:04] LABS: Glucose Point of Care 152 (65-105)
[2019-09-02] MEDS: SIMVASTATIN 10 MG TABLET PO (21:00)
[2019-09-02 21:13] LABS: Glucose Point of Care 193 (65-105)
[2019-09-02 22:00] VITALS: BP 117/44; PULSE 72; RESP 18; TEMP 36.4; O2SAT 99
[2019-09-03 04:39] LABS: Basophils Percent Auto 0.4 % (0.2-1.2); Eosinophils Absolute Auto 0.2 K/mm3 (0-0.3); Eosinophils Percent Auto 3.2 % (0-4.4); Hematocrit 27.3 % (42.0-52.0); Hemoglobin 8.3 g/dL (14.0-18.0); Immature Granulocyte Absolute 0.02 K/mm3 (0.00-0.031); Immature Granulocyte Percent A 0.4 % (0-0.5); Lymphocytes Absolute Auto 1.86 K/mm3 (0.9-3.2); Lymphocytes Percent Auto 32.6 % (18.3-44.2); Mean Corpuscular HGB Conc 30.4 g/dl (32-36); Mean Corpuscular Hemoglobin 30.4 pg (26-34); Mean Platelet Volume 8.5 fl (7.4-10.4); Monocytes Absolute Auto 0.5 K/mm3 (0.1-0.6); Monocytes Percent Auto 8.8 % (2.6-8.5); Neutrophils Absolute Auto 3.1 K/mm3 (1.3-6.7); Neutrophils Percent Auto 54.6 % (45.5-73.1); Platelet Count Result 277 k/mm3 (150-375); Red Blood Count 2.73 M/mm3 (4.6-6.20); Red Cell Distribution Width 13.6 % (11.5-14.5); White Blood Count 5.7 K/mm3 (4.5-10.0)
[2019-09-03 04:56] LABS: Blood Urea Nitrogen 13 mg/dL (9-20); Calcium 7.5 mg/dL (8.4-10.2); Carbon Dioxide 31 mmol/L (22-30); Chloride 102 mmol/L (98-107); Estimated CRCL calculation 73 ml/min; Estimated Glomerular Filt Rate > 60; Glucose 168 mg/dL (75-110); Potassium 4.7 mmol/L (3.4-5.0); Sodium 135 mmol/L (137-145)
[2019-09-03 06:00] VITALS: BP 124/83; PULSE 62; RESP 18; TEMP 36.1; O2SAT 99
[2019-09-03] MEDS: GABAPENTIN 400 MG CAPSULE 800 MG PO ×3 (06:14→21:07)
[2019-09-03] MEDS: HEPARIN SODIUM 5,000 UNITS/ML VIAL 5000 UNITS SUB-Q (06:15)
[2019-09-03 06:52] LABS: Glucose Point of Care 154 (65-105)
[2019-09-03] MEDS: metFORMIN HCL 500 MG TABLET 1000 MG PO ×2 (08:16→17:22)
[2019-09-03] MEDS: lisinopriL 5 MG TABLET PO (08:16)
[2019-09-03] MEDS: AMOXICILLIN/CLAVULANATE K 875-125 MG TAB 1 TABLET PO (08:16)
[2019-09-03] MEDS: ASPIRIN 81 MG ENTERIC TABLET PO (08:16)
--- NOTE | 2019-09-03 11:04 | PCPTNOTE ---
Aldo Rodriguez was evaluated for a wheeled walker on 09/03/2019 by this physical therapist traffic assistant. The wheeled walker will resolve patient's mobility limitations and will be used for ADL's within the home. The patient can safely use the wheeled walker. ?The wheeled walker will resolve the patient?s mobility deficits, including decreased strength and endurance and limited weight bearing on right lower extremity.
[2019-09-03 12:28] LABS: Glucose Point of Care 180 (65-105)
--- NOTE | 2019-09-03 12:29 | WPDNEURORHBP ---
Subjective Date/time seen: 09/03/19 12:29 Interval history: This 58-year-old the diabetic white male is here after having had right [id number] amputation. During occupational therapy somehow patient lost his balance and hit the stump the some hard object and has bleeding and there is a wound dehiscence roughly about the size of 3 inch is in the middle of the stump it was cleaned and dressing was reapplied I have instructed the nurse to be in touch with the treating vascular surgeon and once we touch with him we should be able to send the pictures of his wound and the stump more over the stump looks little bluish and he really needs to at least look at the picture and decide the patient's sugars are trending up so we will have to resume the NPH at a lower dosage and follow his Accu-Cheks The patient denies any headache nausea vomiting chest pain shortness of breath fever chills or sore throat Review of Systems Review of Systems: All systems reviewed & are unremarkable except as noted in HPI and below Functional Status Ambulation Ability Ability to Ambulate 10 Feet: Minimum Assistance X 1 Ambulation Assistive Devices: Walker, Wheeled Transfers Ability Ability to Transfer In/Out of Chair: Standby Assistance Exam Const: General: comfortable and no acute distress HENMT: General nose exam: Normal nares present Mouth: Yes moist mucous membranes Eyes: General: appearance normal, both eyes and all related structures Neck: Neck: supple and no JVD Resp: Effort & Inspection: normal respiratory effort Auscultation: clear to auscultation bilaterally Cardio: Rate: regular rate Rhythm: regular rhythm GI: GI Palp: Yes Soft to palpation Auscultation: normal bowel sounds Skin: General skin exam: normal color and no rashes or lesions noted Neuro: Other: patient is awake and alert will oriented time place and person is speech and language functions are normal he does have evidence of peripheral neuropathy for and absent reflexes sensory deficit lower extremities more so than the upper extremities Extrem: Other: there was a little bleeding from the stump which is stopped the stump does not really look great and I believe the vasculature pradhan needs to look at it be ordered being in touch with him Psych: Mental Status: mental status grossly normal Objective Data Vital Signs Vital Signs: Vital Signs - 24 hr 09/02/19 14:00 09/02/19 22:00 09/03/19 06:00 Temperature 36.2 C L 36.4 C 36.1 C L Pulse Rate 98 72 62 Respiratory Rate 20 18 18 Blood Pressure 114/70 117/44 L 124/83 Pulse Oximetry 100 99 99 Intake/Output Intake/Output: Intake & Output 08/31/19 09/01/19 09/02/19 09/03/19 23:59 23:59 23:59 23:59 Intake Total 1080 720 960 240 Balance 1080 720 960 240 Meds/Results Medications: Active Medications Generic Name Dose Route Start Last Admin Trade Name Freq PRN Reason Stop Dose Admin Hydrocodone Bitart/Acetaminophen 2 tab 08/31/19 22:17 09/03/19 12:13 [place] 5-325 Mg PO 2 tab Q4HR PRN Administration Pain Rated 7-10 Hydrocodone Bitart/Acetaminophen 1 tab 09/03/19 00:37 09/03/19 08:27 [place] 5-325 Mg PO 1 tab Q4H PRN Administration Pain Rated 4-6 Aspirin 81 mg 08/27/19 09:00 09/03/19 08:16 Aspirin Ec PO 81 mg DAILY KHRIS Administration Gabapentin 800 mg 08/29/19 14:00 09/03/19 06:14 Neurontin PO 800 mg Q8HR KHRIS Administration Heparin Sodium (Porcine) 5,000 units 08/26/19 22:00 09/03/19 06:15 Heparin Sodium SUB-Q 5,000 units Q8HR KHRIS Administration Insulin Human NPH 10 units 09/03/19 12:28 SUB-Q 0800,1700 K[facility]IS Lisinopril 5 mg 08/27/19 09:00 09/03/19 08:16 Prinivil PO 5 mg DAILY KHRIS Administration Metformin HCl 1,000 mg 08/27/19 08:00 09/03/19 08:16 Glucophage PO 1,000 mg BIDWM KHRIS Administration Simvastatin 10 mg 08/26/19 21:00 09/02/19 21:00 Zocor PO 10 mg HS KHRIS Administration Labs Labs
--- NOTE | 2019-09-03 12:37 | PC.NURSE ---
Called to Room to see patient by Tenisha Maldonado RN. Dr Lamar at bedside with patient. OT therapist at bedside who reports that patient bumped stump during transfer when legs became weak and patient's balance deficit caused him to sway to right side - unknown if patient bumped stump on sink or on wheelchair when assisted by therapist to prevent fall. Dressing removed by Yan Maldonado and noted incision appears dehisced approximately 3-4 inches on right side of amputation incision. Wound actively bleeding and pressure being applied. Unable to identify if sutures loose. Bleeding slowed and 12 1/2 inch steri strips applied to open area of incision with 4/4s, ABD, and kerlix roll as per Dr Lamar's orders. Site secured with double 6 inch tex wrap in figure 8 fashion.
[2019-09-03 14:00] VITALS: BP 108/70; PULSE 86; RESP 18; TEMP 36.2; O2SAT 98
[2019-09-03 18:18] LABS: Glucose Point of Care 184 (65-105)
[2019-09-03 20:51] LABS: Glucose Point of Care 203 (65-105)
[2019-09-03] MEDS: SIMVASTATIN 10 MG TABLET PO (21:07)
[2019-09-03 21:21] VITALS: BP 126/67; PULSE 76; RESP 20; TEMP 36.6; O2SAT 97
[2019-09-04] MEDS: GABAPENTIN 400 MG CAPSULE 800 MG PO ×3 (05:48→21:39)
[2019-09-04 06:00] VITALS: BP 118/70; PULSE 80; RESP 16; TEMP 36.1; O2SAT 99
[2019-09-04 06:56] LABS: Glucose Point of Care 168 (65-105)
[2019-09-04] MEDS: ASPIRIN 81 MG ENTERIC TABLET PO (08:16)
[2019-09-04] MEDS: metFORMIN HCL 500 MG TABLET 1000 MG PO ×2 (08:16→18:04)
[2019-09-04] MEDS: lisinopriL 5 MG TABLET PO (08:16)
--- NOTE | 2019-09-04 11:18 | WPDNEURORHBP ---
Subjective Date/time seen: 09/04/19 11:18 Interval history: this 58-year-old a of diabetic gentleman is here with right BKA he does have peripheral neuropathy and possibly peripheral vascular disease also his stump is dry today however he does have an appointment with vascular surgeon today this afternoon and his brother will take him over there overall is stable his heparin has been held and we are hoping that will get some answers from the vascular surgeon which way the wants to proceed either they want to leave him on heparin or keep him off the heparin on the clinical grounds he does not have any more bleeding He denies any headache nausea vomiting chest pain shortness of breath Review of Systems Review of Systems: All systems reviewed & are unremarkable except as noted in HPI and below Functional Status Ambulation Ability Ability to Ambulate 10 Feet: Minimum Assistance X 1 Ambulation Assistive Devices: Walker, Wheeled Transfers Ability Ability to Transfer In/Out of Chair: Standby Assistance Exam Const: General: comfortable and no acute distress HENMT: General nose exam: Normal nares present Mouth: Yes moist mucous membranes Eyes: General: appearance normal, both eyes and all related structures Neck: Neck: supple and no JVD Resp: Effort & Inspection: normal respiratory effort Auscultation: clear to auscultation bilaterally Cardio: Rate: regular rate Rhythm: regular rhythm GI: GI Palp: Yes Soft to palpation Auscultation: normal bowel sounds Skin: General skin exam: normal color and no rashes or lesions noted Neuro: Other: patient is awake alert will oriented in time place and person speech and language functions normal cranial nerve examination is normal he does have evidence of peripheral neuropathy lower extremities more so than the upper extremities overall stable Extrem: Other: the stump looks little bed bluish however no active bleeding the site of the dehiscence is about the same Psych: Mental Status: mental status grossly normal Objective Data Vital Signs Vital Signs: Vital Signs - 24 hr 09/03/19 14:00 09/03/19 21:21 09/04/19 06:00 Temperature 36.2 C L 36.6 C 36.1 C L Pulse Rate 86 76 80 Respiratory Rate 18 20 16 Blood Pressure 108/70 126/67 118/70 Pulse Oximetry 98 97 99 Intake/Output Intake/Output: Intake & Output 09/01/19 09/02/19 09/03/19 09/04/19 23:59 23:59 23:59 23:59 Intake Total 720 960 780 240 Balance 720 960 780 240 Meds/Results Medications: Active Medications Generic Name Dose Route Start Last Admin Trade Name Freq PRN Reason Stop Dose Admin Hydrocodone Bitart/Acetaminophen 2 tab 08/31/19 22:17 09/04/19 10:09 [place] 5-325 Mg PO 2 tab Q4HR PRN Administration Pain Rated 7-10 Hydrocodone Bitart/Acetaminophen 1 tab 09/03/19 00:37 09/03/19 08:27 [place] 5-325 Mg PO 1 tab Q4H PRN Administration Pain Rated 4-6 Aspirin 81 mg 08/27/19 09:00 09/04/19 08:16 Aspirin Ec PO 81 mg DAILY KHRIS Administration Gabapentin 800 mg 08/29/19 14:00 09/04/19 05:48 Neurontin PO 800 mg Q8HR KHRIS Administration Heparin Sodium (Porcine) 5,000 units 08/26/19 22:00 09/03/19 06:15 Heparin Sodium SUB-Q 5,000 units Q8HR KHRIS Administration Insulin Human NPH 10 units 09/03/19 12:28 SUB-Q 0800,1700 [facility] Lisinopril 5 mg 08/27/19 09:00 09/04/19 08:16 Prinivil PO 5 mg DAILY KHRIS Administration Metformin HCl 1,000 mg 08/27/19 08:00 09/04/19 08:16 Glucophage PO 1,000 mg BIDWM KHRIS Administration Simvastatin 10 mg 08/26/19 21:00 09/03/19 21:07 Zocor PO 10 mg HS KHRIS Administration Labs Labs: Laboratory Results - last 24 hr 09/03/19 09/03/19 09/03/19 12:20 17:15 20:42 POC Capillary Glucose 180 H 184 H 203 H 09/04/19 06:53 POC Capillary Glucose 168 H Progress Note: A&P Assessment and Plan (1) Wound dehiscence: Code(s): T81.30XA - Disruption of wound, unspec
[2019-09-04 12:04] LABS: Glucose Point of Care 170 (65-105)
--- NOTE | 2019-09-04 12:24 | PCNFU ---
Nutrition Follow-Up Complete: Increased protein needs related to increased demands for healing as evidenced by recent BKA and toe amputation. Goal: Patient to consume 75% of meals or greater. Patient has met goal. No new goal. Pt current nutrition is Heart Healthy. Nutrition recommendation: Heart Healthy Last recorded weight is 110 kg. Bowel Motility:+BM reported 08/31 Labs Reviewed:No new labs to report. Meds Noted:Aspirin,Prinivil, Glucophage. Additional Notes: Spoke with patient over telephone today due to COVID 19 precautions. Patient states to eating well, 100% of intake reported. He has not diet questions or concerns with current heart healthy diet. Agree with diet orders. Patient instruction attached to discharge plan. Monitoring: Follow up every 7 days.
[2019-09-04 14:00] VITALS: BP 98/43; PULSE 75; RESP 18; TEMP 36.4; O2SAT 98
--- NOTE | 2019-09-04 15:42 | PCPTNOTE ---
The patient treatment was not able to be completed on 09/04/2019 due to patient off unit for outside doctors appointment. Patient missed 18 minutes of physical therapy session. Will plan to continue treatment per plan of care.
[2019-09-04 17:08] LABS: Glucose Point of Care 183 (65-105)
--- NOTE | 2019-09-04 18:06 | PC.NURSE ---
Seen by his surgeon today, 09/04/19. Left toe incision,sutures removed and leg covered with tex r/t cellulitis (chronic), and placed on Bactrim bid [id number]. RBKA, use wound gel and gauze, cover with tex wrap. Discontinue Heparin. To follow-up with surgeon in 2 weeks.
[2019-09-04 20:52] VITALS: BP 127/69; PULSE 70; RESP 20; TEMP 36.4; O2SAT 98
[2019-09-04] MEDS: SIMVASTATIN 10 MG TABLET PO (21:39)
[2019-09-04 22:04] LABS: Glucose Point of Care 220 (65-105)
[2019-09-05] MEDS: GABAPENTIN 400 MG CAPSULE 800 MG PO ×3 (05:35→22:02)
[2019-09-05 06:00] VITALS: BP 125/70; PULSE 70; RESP 16; TEMP 36.1; O2SAT 97
[2019-09-05 06:44] LABS: Glucose Point of Care 163 (65-105)
[2019-09-05] MEDS: ASPIRIN 81 MG ENTERIC TABLET PO (07:49)
[2019-09-05] MEDS: lisinopriL 5 MG TABLET PO (07:49)
[2019-09-05] MEDS: SOLOSITE WOUND GEL 85 GM TUBE 1 APPLIC TOPICAL (07:49)
[2019-09-05] MEDS: metFORMIN HCL 500 MG TABLET 1000 MG PO ×2 (07:49→17:26)
[2019-09-05 12:11] LABS: Glucose Point of Care 151 (65-105)
[2019-09-05 14:00] VITALS: BP 104/63; PULSE 98; RESP 20; TEMP 36.1; O2SAT 100
--- NOTE | 2019-09-05 14:27 | WPDNEURORHBP ---
Subjective Date/time seen: 09/05/19 14:27 Interval history: this 58-year-old diabetic with peripheral neuropathy and having had osteomyelitis is here receiving therapy after having had right BKA he is doing fairly well he went to his surgeon who saw his wound and clean it up and put him on antibiotic there is no further bleeding heparin has been stopped and Septra has been started for the next 3 weeks so he denies any headache nausea vomiting fever chills or sore throat Review of Systems Review of Systems: All systems reviewed & are unremarkable except as noted in HPI and below Functional Status Ambulation Ability Ability to Ambulate 10 Feet: Minimum Assistance X 1 Ambulation Assistive Devices: Walker, Wheeled Transfers Ability Ability to Transfer In/Out of Chair: Standby Assistance Exam Const: General: comfortable and no acute distress HENMT: General nose exam: Normal nares present Mouth: Yes moist mucous membranes Eyes: General: appearance normal, both eyes and all related structures Neck: Neck: supple and no JVD Resp: Effort & Inspection: normal respiratory effort Auscultation: clear to auscultation bilaterally Cardio: Rate: regular rate Rhythm: regular rhythm GI: GI Palp: Yes Soft to palpation Auscultation: normal bowel sounds Skin: General skin exam: normal color and no rashes or lesions noted Neuro: Other: patient remains awake alert will orient antidepressant% with normal speech and language functions normal cranial examination with evidence of peripheral neuropathy as documented before engage in therapy Extrem: Other: right BKA looks clean no further bleeding is noted the surgeon has readdressed the will breakdown and would dehiscence and looks better Psych: Mental Status: mental status grossly normal Objective Data Vital Signs Vital Signs: Vital Signs - 24 hr 09/04/19 20:52 09/05/19 06:00 Temperature 36.4 C 36.1 C L Pulse Rate 70 70 Respiratory Rate 20 16 Blood Pressure 127/69 125/70 Pulse Oximetry 98 97 Intake/Output Intake/Output: Intake & Output 09/02/19 09/03/19 09/04/19 09/05/19 23:59 23:59 23:59 23:59 Intake Total 960 780 720 360 Balance 960 780 720 360 Meds/Results Medications: Active Medications Generic Name Dose Route Start Last Admin Trade Name Freq PRN Reason Stop Dose Admin Hydrocodone Bitart/Acetaminophen 2 tab 08/31/19 22:17 09/05/19 08:31 [place] 5-325 Mg PO 2 tab Q4HR PRN Administration Pain Rated 7-10 Hydrocodone Bitart/Acetaminophen 1 tab 09/03/19 00:37 09/04/19 23:21 [place] 5-325 Mg PO 1 tab Q4H PRN Administration Pain Rated 4-6 Aspirin 81 mg 08/27/19 09:00 09/05/19 07:49 Aspirin Ec PO 81 mg DAILY KHRIS Administration Gabapentin 800 mg 08/29/19 14:00 09/05/19 05:35 Neurontin PO 800 mg Q8HR KHRIS Administration Insulin Human NPH 10 units 09/03/19 12:28 SUB-Q 0800,1700 [facility] Lisinopril 5 mg 08/27/19 09:00 09/05/19 07:49 Prinivil PO 5 mg DAILY KHRIS Administration Metformin HCl 1,000 mg 08/27/19 08:00 09/05/19 07:49 Glucophage PO 1,000 mg BIDWM KHRIS Administration Simvastatin 10 mg 08/26/19 21:00 09/04/19 21:39 Zocor PO 10 mg HS KHRIS Administration Trimethoprim/Sulfamethoxazole 1 tab 09/04/19 21:00 09/05/19 07:49 Septra Ds PO 09/25/19 21:01 1 tab Q12HR KHRIS Administration Wound Care/Dressing Products 1 applic 09/05/19 09:00 09/05/19 07:49 Solosite TOPICAL 1 applic DAILY KHRIS Administration Labs Labs: Laboratory Results - last 24 hr 09/04/19 09/04/19 09/05/19 17:00 21:42 06:32 POC Capillary Glucose 183 H 220 H 163 H 09/05/19 11:43 POC Capillary Glucose 151 H Progress Note: A&P Assessment and Plan (1) Wound dehiscence: Code(s): T81.30XA - Disruption of wound, unspecified, initial encounter Status: Acute (2) Chronic kidney disease: Code(s): N18.9 - Chronic kidney disease, unspecified S
[2019-09-05 17:15] LABS: Glucose Point of Care 165 (65-105)
[2019-09-05] MEDS: SIMVASTATIN 10 MG TABLET PO (20:48)
[2019-09-05 21:13] VITALS: BP 111/65; PULSE 79; RESP 16; TEMP 36.6; O2SAT 97
[2019-09-05 22:06] LABS: Glucose Point of Care 182 (65-105)
[2019-09-06] MEDS: GABAPENTIN 400 MG CAPSULE 800 MG PO ×3 (05:57→22:30)
[2019-09-06 06:00] VITALS: BP 128/64; PULSE 78; RESP 18; TEMP 36.1; O2SAT 99
[2019-09-06 07:03] LABS: Glucose Point of Care 153 (65-105)
[2019-09-06] MEDS: ASPIRIN 81 MG ENTERIC TABLET PO (08:54)
[2019-09-06] MEDS: metFORMIN HCL 500 MG TABLET 1000 MG PO ×2 (08:54→17:30)
[2019-09-06] MEDS: lisinopriL 5 MG TABLET PO (08:54)
[2019-09-06 12:18] LABS: Glucose Point of Care 201 (65-105)
[2019-09-06 14:00] VITALS: BP 109/51; PULSE 82; RESP 20; TEMP 36.6; O2SAT 99
[2019-09-06 17:28] LABS: Glucose Point of Care 156 (65-105)
--- NOTE | 2019-09-06 19:00 | PC.NURSE ---
right stump dressing change completed. cleansed with wound wash, rinsed with sterile saline, wound gel applied and super sponges and abd pads and kerlix wrap with tex wrap to cover.
[2019-09-06] MEDS: SOLOSITE WOUND GEL 85 GM TUBE 1 APPLIC TOPICAL (20:20)
[2019-09-06] MEDS: SIMVASTATIN 10 MG TABLET PO (20:21)
[2019-09-06 22:00] VITALS: BP 96/54; PULSE 79; RESP 18; TEMP 36.7; O2SAT 99
[2019-09-06 22:41] LABS: Glucose Point of Care 207 (65-105)
[2019-09-07 06:00] VITALS: BP 111/63; PULSE 64; RESP 18; TEMP 36.4; O2SAT 95
[2019-09-07] MEDS: GABAPENTIN 400 MG CAPSULE 800 MG PO ×3 (06:08→21:21)
[2019-09-07 07:10] LABS: Glucose Point of Care 152 (65-105)
[2019-09-07] MEDS: metFORMIN HCL 500 MG TABLET 1000 MG PO ×2 (08:57→17:33)
[2019-09-07] MEDS: ASPIRIN 81 MG ENTERIC TABLET PO (08:58)
[2019-09-07] MEDS: lisinopriL 5 MG TABLET PO (08:58)
[2019-09-07] MEDS: SOLOSITE WOUND GEL 85 GM TUBE 1 APPLIC TOPICAL (08:58)
[2019-09-07 12:15] LABS: Glucose Point of Care 192 (65-105)
[2019-09-07 14:00] VITALS: BP 120/57; PULSE 68; RESP 18; TEMP 36.3; O2SAT 99
--- NOTE | 2019-09-07 16:45 | WPDNEURORHBP ---
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 peripheral neuropathy also had left 2nd toe removed the patient was seen couple of days ago by his surgeon and is heparin has been discontinued the wound dehiscence on the stump is being treated conservatively and stumpremains stable patient denies any headache nausea vomiting chest pain or shortness of breath Review of Systems Review of Systems: All systems reviewed & are unremarkable except as noted in HPI and below Functional Status Ambulation Ability Ability to Ambulate 10 Feet: Standby Assistance Ambulation Assistive Devices: Walker, Wheeled Transfers Ability Ability to Transfer In/Out of Chair: Standby Assistance Exam Const: General: comfortable and no acute distress HENMT: General nose exam: Normal nares present Mouth: Yes moist mucous membranes Eyes: General: appearance normal, both eyes and all related structures Other: evidence of retinopathy stable Neck: Neck: supple and no JVD Resp: Effort & Inspection: normal respiratory effort Auscultation: clear to auscultation bilaterally Cardio: Rate: regular rate Rhythm: regular rhythm GI: GI Palp: Yes Soft to palpation Auscultation: normal bowel sounds Skin: General skin exam: normal color and no rashes or lesions noted Neuro: Other: patient is awake and alert has normal speech and language function normal cranial examination evidence of significant peripheral peripheral neuropathy needing assistance in the activities daily living of course main factor is the right BKA and also removal of the 2nd toe on the left side Extrem: Other: the wound dehiscence at the stump is stable no for the bleeding is noted is being dressed daily the patient is bladder repair which was removed is stable there isno sign of clinical infection Objective Data Vital Signs Vital Signs: Vital Signs - 24 hr 09/06/19 22:00 09/07/19 06:00 09/07/19 14:00 Temperature 36.7 C 36.4 C 36.3 C L Pulse Rate 79 64 68 Respiratory Rate 18 18 18 Blood Pressure 96/54 L 111/63 120/57 L Pulse Oximetry 99 95 99 Intake/Output Intake/Output: Intake & Output 09/04/19 09/05/19 09/06/19 09/07/19 23:59 23:59 23:59 23:59 Intake Total 720 960 720 960 Balance 720 960 720 960 Meds/Results Medications: Active Medications Generic Name Dose Route Start Last Admin Trade Name Freq PRN Reason Stop Dose Admin Hydrocodone Bitart/Acetaminophen 2 tab 08/31/19 22:17 09/05/19 08:31 [place] 5-325 Mg PO 2 tab Q4HR PRN Administration Pain Rated 7-10 Hydrocodone Bitart/Acetaminophen 1 tab 09/03/19 00:37 09/07/19 15:08 [place] 5-325 Mg PO 1 tab Q4H PRN Administration Pain Rated 4-6 Aspirin 81 mg 08/27/19 09:00 09/07/19 08:58 Aspirin Ec PO 81 mg DAILY KHRIS Administration Gabapentin 800 mg 08/29/19 14:00 09/07/19 15:07 Neurontin PO 800 mg Q8HR KHRIS Administration Insulin Human NPH 10 units 09/03/19 12:28 SUB-Q 0800,1700 KHRIS Lisinopril 5 mg 08/27/19 09:00 09/07/19 08:58 Prinivil PO 5 mg DAILY KHRIS Administration Metformin HCl 1,000 mg 08/27/19 08:00 09/07/19 08:57 Glucophage PO 1,000 mg BIDWM KHRIS Administration Simvastatin 10 mg 08/26/19 21:00 09/06/19 20:21 Zocor PO 10 mg HS KHRIS Administration Trimethoprim/Sulfamethoxazole 1 tab 09/04/19 21:00 09/07/19 08:58 Septra Ds PO 09/25/19 21:01 1 tab Q12HR KHRIS Administration Wound Care/Dressing Products 1 applic 09/05/19 09:00 09/07/19 08:58 Solosite TOPICAL 1 applic DAILY KHRIS Administration Labs Labs: Laboratory Results - last 24 hr 09/06/19 09/06/19 09/07/19 17:20 22:32 07:01 POC Capillary Glucose 156 H 207 H 152 H 09/07/19 12:00 POC Capillary Glucose 192 H Progress Note: A&P Assessment and Plan (1) Wound dehiscence: Code(s): T81.30XA
[2019-09-07 17:37] LABS: Glucose Point of Care 211 (65-105)
[2019-09-07] MEDS: SIMVASTATIN 10 MG TABLET PO (21:20)
[2019-09-07 21:50] VITALS: BP 117/68; PULSE 70; RESP 16; TEMP 36.1; O2SAT 100
[2019-09-07 23:14] LABS: Glucose Point of Care 185 (65-105)
[2019-09-08] MEDS: GABAPENTIN 400 MG CAPSULE 800 MG PO ×3 (05:23→20:28)
[2019-09-08 06:00] VITALS: BP 125/58; PULSE 70; RESP 16; TEMP 36.4; O2SAT 100
[2019-09-08 07:08] LABS: Glucose Point of Care 206 (65-105)
[2019-09-08] MEDS: metFORMIN HCL 500 MG TABLET 1000 MG PO ×2 (08:25→17:28)
[2019-09-08] MEDS: ASPIRIN 81 MG ENTERIC TABLET PO (08:26)
[2019-09-08] MEDS: SOLOSITE WOUND GEL 85 GM TUBE 1 APPLIC TOPICAL (08:26)
[2019-09-08] MEDS: lisinopriL 5 MG TABLET PO (08:26)
[2019-09-08 12:46] LABS: Glucose Point of Care 153 (65-105)
[2019-09-08 14:00] VITALS: BP 114/69; PULSE 85; RESP 20; TEMP 37.1; O2SAT 99
[2019-09-08 17:29] LABS: Glucose Point of Care 144 (65-105)
--- NOTE | 2019-09-08 19:31 | PC.NURSE ---
stump dressing changed as ordered.
[2019-09-08] MEDS: SIMVASTATIN 10 MG TABLET PO (20:28)
[2019-09-08 21:11] VITALS: BP 116/63; PULSE 69; RESP 20; TEMP 36.4; O2SAT 100
[2019-09-08 21:23] LABS: Glucose Point of Care 169 (65-105)
[2019-09-09 06:00] VITALS: BP 120/60; PULSE 58; RESP 16; TEMP 36.1; O2SAT 99
[2019-09-09] MEDS: GABAPENTIN 400 MG CAPSULE 800 MG PO ×3 (06:27→21:50)
[2019-09-09 07:07] LABS: Glucose Point of Care 149 (65-105)
[2019-09-09 08:14] VITALS: BP 128/59; PULSE 72; RESP 16; O2SAT 100
[2019-09-09] MEDS: metFORMIN HCL 500 MG TABLET 1000 MG PO ×2 (08:15→17:14)
[2019-09-09] MEDS: lisinopriL 5 MG TABLET PO (08:16)
[2019-09-09] MEDS: ASPIRIN 81 MG ENTERIC TABLET PO (08:16)
--- NOTE | 2019-09-09 11:37 | WPDNEURORHBP ---
Subjective Date/time seen: 09/09/19 11:37 Interval history: This 58-year-old diabetic white male is here after having had right BKA he has done very well and almost completed the go our goals on a this discussed in over team conference the BKA looks clean no sign of infection and the left 2nd toe which was removed also looks pretty good his on Septra for a total of 3 weeks as per surgeon we are planning to discharge him tomorrow no headache nausea vomiting fevers chills or sore throat Review of Systems Review of Systems: All systems reviewed & are unremarkable except as noted in HPI and below Functional Status Ambulation Ability Ability to Ambulate 10 Feet: Contact Guard Ambulation Assistive Devices: Walker, Wheeled Transfers Ability Ability to Transfer In/Out of Chair: Standby Assistance Exam Const: General: comfortable and no acute distress HENMT: General nose exam: Normal nares present Mouth: Yes moist mucous membranes Eyes: General: appearance normal, both eyes and all related structures Other: the retinopathy is stable with decreased vision right more so than the left Neck: Neck: supple and no JVD Resp: Effort & Inspection: normal respiratory effort Auscultation: clear to auscultation bilaterally Cardio: Rate: regular rate Rhythm: regular rhythm GI: GI Palp: Yes Soft to palpation Auscultation: normal bowel sounds Skin: General skin exam: normal color and no rashes or lesions noted Neuro: Other: patient's mental status is normal cranial examination is normal strength has improved significantly he does have evidence of peripheral neuropathy and the possibly peripheral vascular disease with diminished reflexes right BKA is stable Extrem: Other: the site of the BKA is clean, the site of the 2nd toe removed is also clean Psych: Mental Status: mental status grossly normal Objective Data Vital Signs Vital Signs: Vital Signs - 24 hr 09/08/19 14:00 09/08/19 21:11 09/09/19 06:00 Temperature 37.1 C 36.4 C L 36.1 C L Pulse Rate 85 69 58 L Respiratory Rate 20 20 16 Blood Pressure 114/69 116/63 120/60 Pulse Oximetry 99 100 99 09/09/19 08:14 Temperature Pulse Rate 72 Respiratory Rate 16 Blood Pressure 128/59 L Pulse Oximetry 100 Intake/Output Intake/Output: Intake & Output 09/06/19 09/07/19 09/08/19 09/09/19 23:59 23:59 23:59 23:59 Intake Total 720 1440 900 360 Balance 720 1440 900 360 Meds/Results Medications: Active Medications Generic Name Dose Route Start Last Admin Trade Name Freq PRN Reason Stop Dose Admin Hydrocodone Bitart/Acetaminophen 2 tab 08/31/19 22:17 09/05/19 08:31 [place] 5-325 Mg PO 2 tab Q4HR PRN Administration Pain Rated 7-10 Hydrocodone Bitart/Acetaminophen 1 tab 09/03/19 00:37 09/09/19 00:00 [place] 5-325 Mg PO 1 tab Q4H PRN Administration Pain Rated 4-6 Aspirin 81 mg 08/27/19 09:00 09/09/19 08:16 Aspirin Ec PO 81 mg DAILY KHRIS Administration Gabapentin 800 mg 08/29/19 14:00 09/09/19 06:27 Neurontin PO 800 mg Q8HR KHRIS Administration Insulin Human NPH 10 units 09/03/19 12:28 SUB-Q 0800,1700 KHRIS Lisinopril 5 mg 08/27/19 09:00 09/09/19 08:16 Prinivil PO 5 mg DAILY KHRIS Administration Metformin HCl 1,000 mg 08/27/19 08:00 09/09/19 08:15 Glucophage PO 1,000 mg BIDWM KHRIS Administration Simvastatin 10 mg 08/26/19 21:00 09/08/19 20:28 Zocor PO 10 mg HS KHRIS Administration Trimethoprim/Sulfamethoxazole 1 tab 09/04/19 21:00 09/09/19 08:16 Septra Ds PO 09/25/19 21:01 1 tab Q12HR KHRIS Administration Wound Care/Dressing Products 1 applic 09/05/19 09:00 09/08/19 08:26 Solosite TOPICAL 1 applic DAILY KHRIS Administration Labs Labs: Laboratory Results - last 24 hr 09/08/19 09/08/19 09/08/19 12:22 17:08 20:23 POC Capillary Glucose 153 H 144 H 169 H 09/09/19 06:54 POC Capillary Glucose 149 H Progress Note: A&P Assessment and Pl
[2019-09-09 12:40] LABS: Glucose Point of Care 158 (65-105)
[2019-09-09 14:00] VITALS: BP 94/56; PULSE 82; RESP 20; TEMP 36.3; O2SAT 100
[2019-09-09] MEDS: SOLOSITE WOUND GEL 85 GM TUBE 1 APPLIC TOPICAL (15:44)
[2019-09-09 18:12] LABS: Glucose Point of Care 146 (65-105)
[2019-09-09 20:58] VITALS: BP 116/56; PULSE 82; RESP 20; TEMP 36.6; O2SAT 100
[2019-09-09 21:28] LABS: Glucose Point of Care 178 (65-105)
[2019-09-09] MEDS: SIMVASTATIN 10 MG TABLET PO (21:51)
[2019-09-10 04:33] LABS: Basophils Percent Auto 0.5 % (0.2-1.2); Eosinophils Absolute Auto 0.3 K/mm3 (0-0.3); Eosinophils Percent Auto 4.8 % (0-4.4); Hematocrit 30.9 % (42.0-52.0); Hemoglobin 9.5 g/dL (14.0-18.0); Immature Granulocyte Absolute 0.02 K/mm3 (0.00-0.031); Immature Granulocyte Percent A 0.3 % (0-0.5); Lymphocytes Absolute Auto 2.07 K/mm3 (0.9-3.2); Lymphocytes Percent Auto 35.1 % (18.3-44.2); Mean Corpuscular HGB Conc 30.7 g/dl (32-36); Mean Corpuscular Hemoglobin 30.7 pg (26-34); Mean Platelet Volume 8.2 fl (7.4-10.4); Monocytes Absolute Auto 0.5 K/mm3 (0.1-0.6); Monocytes Percent Auto 8.8 % (2.6-8.5); Neutrophils Percent Auto 50.5 % (45.5-73.1); Platelet Count Result 374 k/mm3 (150-375); Red Blood Count 3.09 M/mm3 (4.6-6.20); Red Cell Distribution Width 13.9 % (11.5-14.5); White Blood Count 5.9 K/mm3 (4.5-10.0)
[2019-09-10 04:49] LABS: Blood Urea Nitrogen 20 mg/dL (9-20); Calcium 8.2 mg/dL (8.4-10.2); Carbon Dioxide 25 mmol/L (22-30); Chloride 103 mmol/L (98-107); Estimated CRCL calculation 47 ml/min; Estimated Glomerular Filt Rate 37; Glucose 166 mg/dL (75-110); Potassium 5.2 mmol/L (3.4-5.0); Sodium 136 mmol/L (137-145)
[2019-09-10] MEDS: GABAPENTIN 400 MG CAPSULE 800 MG PO ×2 (05:34→12:51)
[2019-09-10 06:00] VITALS: BP 129/71; PULSE 63; RESP 20; TEMP 36.2; O2SAT 99
[2019-09-10 06:48] LABS: Glucose Point of Care 185 (65-105)
[2019-09-10] MEDS: ASPIRIN 81 MG ENTERIC TABLET PO (08:38)
[2019-09-10] MEDS: lisinopriL 5 MG TABLET PO (08:38)
[2019-09-10] MEDS: SOLOSITE WOUND GEL 85 GM TUBE 1 APPLIC TOPICAL (08:38)
[2019-09-10] MEDS: metFORMIN HCL 500 MG TABLET 1000 MG PO (08:38)
--- NOTE | 2019-09-10 12:03 | WPDNEURORHBP ---
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 diabetes mellitus and also the primary care physician Review of Systems Review of Systems: All systems reviewed & are unremarkable except as noted in HPI and below Functional Status Ambulation Ability Ability to Ambulate 10 Feet: Contact Guard Ambulation Assistive Devices: Walker, Wheeled Transfers Ability Ability to Transfer In/Out of Chair: Standby Assistance Exam Const: General: comfortable and no acute distress HENMT: General nose exam: Normal nares present Mouth: Yes moist mucous membranes Eyes: General: appearance normal, both eyes and all related structures Neck: Neck: supple and no JVD Resp: Effort & Inspection: normal respiratory effort Auscultation: clear to auscultation bilaterally Cardio: Rate: regular rate Rhythm: regular rhythm GI: GI Palp: Yes Soft to palpation Auscultation: normal bowel sounds : Male General Exam: Yes normal external exam Skin: General skin exam: normal color and no rashes or lesions noted Neuro: Other: the patient's mental status examination is stable and normal cranial examination apart from showing what he describes as stage I diabetic retinopathy stable visual acuity remains stable evidence of peripheral neuropathy remains stable patient is able to walk only about 20 feet because of inability of course to right BKA his waiting for his wheelchair Extrem: Other: right BKA clean and healthy Psych: Mental Status: mental status grossly normal Objective Data Vital Signs Vital Signs: Vital Signs - 24 hr 09/09/19 14:00 09/09/19 20:58 09/10/19 06:00 Temperature 36.3 C L 36.6 C 36.2 C L Pulse Rate 82 82 63 Respiratory Rate 20 20 20 Blood Pressure 94/56 L 116/56 L 129/71 Pulse Oximetry 100 100 99 Intake/Output Intake/Output: Intake & Output 09/07/19 09/08/19 09/09/19 09/10/19 23:59 23:59 23:59 23:59 Intake Total 7778 472 8266 240 Balance 4796 823 1188 240 Meds/Results Medications: Active Medications Generic Name Dose Route Start Last Admin Trade Name Freq PRN Reason Stop Dose Admin Hydrocodone Bitart/Acetaminophen 2 tab 08/31/19 22:17 09/05/19 08:31 [place] 5-325 Mg PO 2 tab Q4HR PRN Administration Pain Rated 7-10 Hydrocodone Bitart/Acetaminophen 1 tab 09/03/19 00:37 09/10/19 04:21 [place] 5-325 Mg PO 1 tab Q4H PRN Administration Pain Rated 4-6 Aspirin 81 mg 08/27/19 09:00 09/10/19 08:38 Aspirin Ec PO 81 mg DAILY KHRIS Administration Gabapentin 800 mg 08/29/19 14:00 09/10/19 05:34 Neurontin PO 800 mg Q8HR KHRIS Administration Insulin Human NPH 10 units 09/03/19 12:28 SUB-Q 0800,1700 KHRIS Lisinopril 5 mg 08/27/19 09:00 09/10/19 08:38 Prinivil PO 5 mg DAILY KHRIS Administration Metformin HCl 1,000 mg 08/27/19 08:00 09/10/19 08:38 Glucophage PO 1,000 mg BIDWM KHRIS Administration Simvastatin 10 mg 08/26/19 21:00 09/09/19 21:51 Zocor PO 10 mg HS KHRIS Administration Trimethoprim/Sulfamethoxazole 1 tab 09/04/19 21:00 09/10/19 08:38 Septra Ds PO 09/25/19 21:01 1 tab Q12HR KHRIS Administration Wound Care/Dressing Products 1 applic 09/05/19 09:00 09/10/19 08:38 Solosite TOPICAL 1 applic DAILY KHRIS Administration Labs Labs: Laboratory Results - last 24 hr 09/09/19 09/09/19 09/09/19 11:53 17:15 19:59 WBC RBC Hgb Hct MCV MCH MCHC RDW Plt Count MPV Immature Gran % (Auto) Neut % (Auto) Lymph % (Auto) [place] % (Auto) Eos % (Auto) Baso % (Auto) Lymph # (Auto) [place] # (Auto) Eos # (Auto) Baso # (Auto) Abs Immat Gran (aut
[2019-09-10 12:13] LABS: Glucose Point of Care 146 (65-105)
--- NOTE | 2019-09-10 12:13 | PCDIET ---
Nutrition Follow-Up Complete: Nutrition Diagnosis: Increased protein needs related to increased demands for healing as evidenced by recent BKA and toe amputation. Nutrition Goal: Patient to consume 75% of meals or greater. Goal met. Patient consuming 100% of meals on heart healthy diet. Recommend addition of diabetic diet. Spoke with patient via phone due to COVID-19 precautions. Patient denies questions/concerns and is eager for discharge. Last recorded weight is 110 kg. Recommend obtaining new weight. Bowel Motility: Last documented BM 09/06/19; however, patient denies constipation and reports bowels moving normally. Labs Reviewed: Glu (185), Cr (1.9), K (5.2), Na (136) Meds Noted: Insulin NPH, Glucophage, Septra Additional Notes: Left second toe incision. Right distal knee incision. No pressure sores documented. Would encourage adequate fluid intake and monitor labs closely. Nutrition Monitoring and Evaluation: Follow up every 7 days.
--- NOTE | 2019-09-13 12:58 | DS_ITS ---
DATE OF DISCHARGE: 09/10/2019 DISCHARGE ACUTE REHABILITATION DIAGNOSIS: Primary rehab impairment category of amputation of lower extremity with etiological diagnosis of right foot osteomyelitis with gangrene for which the patient has gone right [id number] amputation. DISCHARGE ACTIVE COMORBID CONDITIONS: 1. Hypertension. 2. Hyperlipidemia. 3. Diabetes mellitus with peripheral neuropathy. 4. Chronic kidney disease. 5. Morbid obesity. REASON FOR ADMISSION: A 58-year-old right-handed male with past medical history of diabetes mellitus, diabetic foot ulcer with osteomyelitis, chronic kidney disease and peripheral vascular disease along with peripheral neuropathy, presented to emergency department of [facility] on 08/18/2019 complaining of generalized weakness. He dropped 4-pound can of beans on his right fourth toe about 10 days ago, complained of excessive thirst and urination. Initial evaluation documented him being in diabetic ketoacidosis with poorly controlled diabetes mellitus type 1. With right foot osteomyelitis, gangrene, acute renal failure, sepsis, and soft tissue involvement, also hypertensive and dehydrated. He received aggressive fluid hydration. Lab documented pseudohyperkalemia with acute renal failure. He received vancomycin and Zosyn while awaiting the cultures and was started on insulin drip with transition to subcutaneous insulin . Vascular surgical team was consulted. Limb was not salvageable. He underwent right [id number] amputation, left second toe amputation with debridement of the left foot and left lower extremity. Postoperatively, developed severe pain, anemia, hyperglycemia, hyponatremia, for which insulin were adjusted accordingly and pain medication given accordingly. Hemoglobin was 10 and electrolytes were also corrected accordingly. He has not traveled outside the [place] or had contact with someone who was ill or had traveled outside the [place] in the past 21 days and had no fever or cough. LEVEL OF FUNCTION AT THE TIME OF ADMISSION: He was independently eating, required supervision for oral hygiene, substantial assistance for toileting. He refused bathing, setup for the upper body dressing, refused lower body dressing, was dependent for footwear. He was independent for rolling in bed, required supervision for sit to lying, lying to sitting, partial assistance for sit to stand, chair transfer, toilet transfer, car transfer. He was unable to walk 10 feet or 50 feet with 2 turns. He was unable to walk 150 feet. He was unable to walk on uneven surfaces, curb or step, 4 steps, 12 steps. He was unable to pickup objects, though he was independent for the wheelchair, 50 or 150 feet. ANTICIPATED REHAB GOALS: Anticipated rehab goals were to make him independent in all the modalities except that he will require substantial assistance for walking 50 feet with 2 turns. He still will be unable to walk 150 feet. He will become independent walking 10 feet on uneven surfaces. He will require substantial assistance for curb or step, 4 steps, 12 steps, and partial assistance for picking up objects, though he will become independent in wheelchair for 50 feet or 150 feet. LEVEL OF FUNCTION AT THE TIME OF DISCHARGE: The patient became independent in most of the modalities. He required only setup for the bathing, supervision for car transfer, 10 feet walking, picking up object, also walking 10 feet on uneven surfaces, but he was unable to walk 50 feet with 2 turns, 150 feet, curb or step, 4 steps, 12 steps. He became independent for the wheelchair. HOSPITAL COURSE: During the hospitalization, he was involved actively in physical therapy and occupational therapy and no specific problem. At the time of discharge, he was able to ambulate 10 fee
== END 2019-09-10 14:26 | disposition home health service (06) | DRG 560 ==
PROVIDERS: Admitting Provider Psychiatry & Neurology Neurology; Visit Provider Psychiatry & Neurology Neurology
DX: Z47.81 Encounter for orthopedic aftercare following surgical amputation (principal); E87.1 Hypo-osmolality and hyponatremia; Z89.511 Acquired absence of right leg below knee; Z89.422 Acquired absence of other left toe(s); E10.22 Type 1 diabetes mellitus with diabetic chronic kidney disease; E10.319 Type 1 diabetes mellitus with unspecified diabetic retinopathy without macular edema; E10.65 Type 1 diabetes mellitus with hyperglycemia; E10.51 Type 1 diabetes mellitus with diabetic peripheral angiopathy without gangrene; E10.42 Type 1 diabetes mellitus with diabetic polyneuropathy; E78.5 Hyperlipidemia, unspecified; E66.01 Morbid (severe) obesity due to excess calories; I12.9 Hypertensive chronic kidney disease with stage 1 through stage 4 chronic kidney disease, or unspecified chronic kidney disease; N18.9 Chronic kidney disease, unspecified; R06.89 Other abnormalities of breathing; T81.30XD Disruption of wound, unspecified, subsequent encounter; Z98.890 Other specified postprocedural states; Z86.14 Personal history of Methicillin resistant Staphylococcus aureus infection; Z79.4 Long term (current) use of insulin; Z68.38 Body mass index [BMI] 38.0-38.9, adult
CPT/HCPCS: 36415; 80048; 85025; 97110; 97116; 97162; 97166; 97530; 97535; 97542; A9270; J1644; J1815